=== PATIENT | female | born 1975 | race African-American/Black ===

== ENCOUNTER 2017-06-09 02:44 | Emergency (ER) | payer BC, MEDICAID ==
[~2017-06-09] VITALS: Ht 175.3 cm; Wt 89.0 kg
[~2017-06-09 02:44] MED LIST: PREN1TAB19 PO
[2017-06-09 06:15] VITALS: BP 132/77
[2017-06-09] MEDS ORDERED: FAMOTIDINE 20MG TABLET PO ONE (06:30)
[2017-06-09] MEDS ORDERED: ONDANSETRON 4MG ODT PO ONE (06:30)
== END 2017-06-09 07:01 | disposition home or self-care (01) ==
LOC: ER 02:44
DX: R11.2 Nausea with vomiting, unspecified (principal); R03.0 Elevated blood-pressure reading, without diagnosis of hypertension; Z98.890 Other specified postprocedural states; Z88.2 Allergy status to sulfonamides; Z88.1 Allergy status to other antibiotic agents
CPT/HCPCS: 81025; 99283; Q0162